=== PATIENT | female | born 1995 | race Caucasian/White ===

== ENCOUNTER 2017-06-26 18:26 | Emergency (ER) | payer OTHER ==
[~2017-06-26] VITALS: Ht 160 cm; Wt 59.0 kg
[2017-06-27] MEDS ORDERED: PEPCID AC20 MG PO (03:45)
[2017-06-27] MEDS ORDERED: FLAGYL500MG PO (03:45)
[2017-06-27] MEDS ORDERED: DICY20TA PO (03:45)
[2017-06-27] MEDS ORDERED: CIPRO500 MG PO (03:45)
[2017-06-27] MEDS ORDERED: INTESTINEX680 M1 PO (03:45)
[2017-06-27] MEDS ORDERED: ZOFRAN4 MG PO (03:45)
== END 2017-06-27 03:59 | disposition home or self-care (01) ==
LOC: ER 18:26
DX: K52.89 Other specified noninfective gastroenteritis and colitis (principal)

== ENCOUNTER 2018-09-27 11:36 | Emergency (ER) | payer OTHER ==
[~2018-09-27] VITALS: Ht 162.6 cm; Wt 60.3 kg
[~2018-09-27 11:36] MED LIST: CIPRO500 MG PO; DICY20TA PO; FLAGYL500MG PO; INTESTINEX680 M1 PO; PEPCID AC20 MG PO; ZOFRAN4 MG PO
== END 2018-09-27 15:51 | disposition home or self-care (01) ==
LOC: ER 11:36
DX: B34.9 Viral infection, unspecified (principal); R05 Cough